=== PATIENT | female | born 1965 | race Caucasian/White ===

== ENCOUNTER → 2016-06-03 | Outpatient (CLI) | payer OTHER ==
[~2016-06-03] VITALS: Ht 157.5 cm; Wt 112.5 kg
[~2016-06-03] MED LIST: ACLI400A2 IH; ALPR.5T PO; AMIT25TA9 PO; AMIT50TA3 PO; ASPI-983 PO; ASPI-999 PO; ASPI1TAB22 PO; BUDE10.2 IH; BUME0.5T3 PO; CATHETER FLUSH 10 ML SYR IV PRN; CETI10TA20 PO; DAPA1TAB3 PO; EZET1TAB43 PO; FAMO-119 PO; FLAX100031 PO; FLUO40CA PO; GLIP10TA13 PO; HCT25T PO; HCTZ12.5T PO; IBUP-30 PO; INSU100V5 SQ; IPRA3AMP IH; IPRA3AMP11 INH; LIRA0.6P SQ; METF500T8 PO; METO-333 PO; MONT10TA21 PO; NEBU1EAC2 MC; PANT40TA2 PO; PIOG15TA2 PO; POTA-53 PO; Prednisone PO; QUIN10TA17 PO; QUIN40TA PO; REGADENOSON 0.4 MG/5 ML SYR (LEXISCAN) IV ONE; ROFL500T4 PO; RT-ALBUINH IH; SITA100T PO; ZLP10T PO
[2016-06-03 09:08] VITALS: BP 118/55
--- NOTE | 2016-06-07 10:16 | STRESS TEST ---
PROCEDURE PHYSICIAN: HAYDEN RUTHERFORD RESTING AND POST REGADENOSON TECHNETIUM 99M TETROFOSMIN SPECT CT IMAGING DATE OF PROCEDURE: 06/03/2016 ORDERING PHYSICIAN: Dara Flanagan APRN. PRIMARY PHYSICIAN: Dr. Galvez OTHER PHYSICIAN: Dr. Rutherford CLINICAL DIAGNOSIS: Shortness of breath. Baseline images were carried out after injection of 10.93 mCi technetium 99m tetrofosmin. This was followed by 0.4 mg of regadenoson and 31.7 mCi technetium 99m tetrofosmin for stress imaging. The electrocardiogram showed sinus rhythm at baseline. There was ST and T wave abnormality at baseline which did not change significantly with regadenoson infusion. Review of images at rest and following stress, indicates a transient anteroseptal perfusion defect. Gated images show normal global left ventricular systolic function with normal regional wall motion. Left ventricular ejection fraction is calculated to be 79%. Left end-diastolic volume is 41 mL. TID is absent (0.85). CONCLUSION: 1. This study indicates a moderate amount of anteroseptal ischemia. 2. Normal regional wall motion. 3. Normal global left ventricular systolic function with a calculated ejection fraction of 79%. Job ID: [id number] Dictated Date: 06/07/2016 09:12:34 Payroll Auditor Date: 06/07/2016 10:11:20 / muriel
== END ==
LOC: CARD 07:45
PROVIDERS: ATTEND Nurse Practitioner Family
DX: I50.32 Chronic diastolic (congestive) heart failure (principal)
CPT/HCPCS: 78452; 93017

== ENCOUNTER 2016-06-22 07:57 | Day surgery (SDC) | payer OTHER ==
[~2016-06-22] VITALS: Ht 157.5 cm; Wt 113.4 kg
[2016-06-22] VITALS (11 sets, daily range): BP systolic 126–170; BP diastolic 63–86
[~2016-06-22 07:57] MED LIST changes: -ACLI400A2 IH; -AMIT50TA3 PO; -ASPI-983 PO; -ASPI-999 PO; -BUDE10.2 IH; -BUME0.5T3 PO; -CATHETER FLUSH 10 ML SYR IV PRN; -CETI10TA20 PO; -DAPA1TAB3 PO; -FAMO-119 PO; -INSU100V5 SQ; -IPRA3AMP IH; -METO-333 PO; -MONT10TA21 PO; -PANT40TA2 PO; -POTA-53 PO; -REGADENOSON 0.4 MG/5 ML SYR (LEXISCAN) IV ONE; -ROFL500T4 PO; -RT-ALBUINH IH
[2016-06-22] MEDS ORDERED: HEParin (CATH LAB) 2,000 ML IV ONE (08:09)
[2016-06-22] MEDS ORDERED: LIDOCAINE 1% INJ 20 ML (XYLOCAINE) VIAL ONE (08:09)
[2016-06-22] MEDS ORDERED: NS IV 1000 ML 1,000 ML ONE (08:09)
[2016-06-22] MEDS ORDERED: NS IV 1000 ML 1,000 ML IV SCH ×2 (08:30→11:04)
[2016-06-22 08:47] LABS: RED BLOOD COUNT 5.04 10^6/uL (4.35-5.85); RED CELL DISTRIBUTION WIDTH 15.9 % (10.0-14.5); WHITE BLOOD COUNT 11.5 10^3/uL (4.3-11.0)
[2016-06-22] MEDS ORDERED: ROFL500T4 PO (08:54)
[2016-06-22] MEDS ORDERED: BUDE10.2 IH (08:54)
[2016-06-22] MEDS ORDERED: INSU100V5 SQ (08:54)
[2016-06-22] MEDS ORDERED: METO-333 PO (08:54)
[2016-06-22] MEDS ORDERED: BUME0.5T3 PO (08:54)
[2016-06-22] MEDS ORDERED: ACLI400A2 IH (08:54)
[2016-06-22] MEDS ORDERED: CETI10TA20 PO (08:54)
[2016-06-22] MEDS ORDERED: DAPA1TAB3 PO (08:54)
[2016-06-22] MEDS ORDERED: ASPI-983 PO (08:54)
[2016-06-22] MEDS ORDERED: MONT10TA21 PO (08:54)
[2016-06-22] MEDS ORDERED: PANT40TA2 PO (08:54)
[2016-06-22] MEDS ORDERED: POTA-53 PO (08:54)
[2016-06-22] MEDS ORDERED: AMIT50TA3 PO (08:54)
[2016-06-22 08:59] LABS: PROTHROMBIN TIME PATIENT 13.2 SEC (12.2-14.7)
[2016-06-22] MEDS ORDERED: RT-ALBUINH IH (09:02)
[2016-06-22] MEDS ORDERED: IPRA3AMP IH (09:02)
[2016-06-22] MEDS ORDERED: FAMO-119 PO (09:02)
[2016-06-22 09:08] LABS: ALANINE AMINOTRANSFERASE 28 U/L (0-55); ALBUMIN 4.1 G/DL (3.2-4.5); ANION GAP 13 MMOL/L (5-14); ASPARTATE AMINO TRANSFERASE 16 U/L (5-34); BILIRUBIN,TOTAL 0.5 MG/DL (0.1-1.0); BLOOD UREA NITROGEN 9 MG/DL (7-18); BUN/CREATININE RATIO 12; CALCIUM 9.2 MG/DL (8.5-10.1); CARBON DIOXIDE 21 MMOL/L (21-32); CHLORIDE 103 MMOL/L (98-107); CHOLESTEROL 187 MG/DL (< 200); CREATININE SERUM 0.75 MG/DL (0.60-1.30); DIRECT LDL 107 MG/DL (1-129); GFR ESTIMATED > 60; GLUCOSE 211 MG/DL (70-105); POTASSIUM 3.1 MMOL/L (3.6-5.0); SODIUM 137 MMOL/L (135-145); TOTAL PROTEIN 6.9 G/DL (6.4-8.2); TRIGLYCERIDES 279 MG/DL (<150); VLDL CHOLESTEROL 56 MG/DL (5-40)
--- NOTE | 2016-06-22 10:02 | Cardiac Procedure Note-CS/ASA ---
Pre-Procedure Note Pre-Op Procedure Note H&P Reviewed The H&P was reviewed, patient examined and no changes noted. Date H&P Reviewed: Jun 22, 2016 Time H&P Reviewed: 10: Conscious Sedation Pre-Proced Time Reviewed: : ASA Class: 3 Airway Mallampati Classification: ([place] appropriate class) I. II. III, IV Lungs Heart ASA score ASA 1: a normal healthy patient ASA 2: a patient with a mild systemic disease (mid diabetes, controlled hypertension, obesity ASA 3: a patient with a severe systemic disease that limits activity (angina , COPD, prior Myocardial infarction) ASA 4: a patient with an incapacitating disease that is a constant threat to life (CHF, renal failure) ASA 5: a moribund patient not expected to survive 24 hrs. (ruptured aneurysm) ASA 6: a declared brain patient whose organs are being harvested. For emergent operations, add the letter E after the classification Grade 3 Sedation Plan: Analgesia, Amnesia, Plan communicated to team members, Discussed options with patient/fam, Discussed risks with patient/fam Note The patient is an appropriate candidate to undergo the planned procedure, sedation, and anesthesia. The patient immediately re-assessed prior to indication. HAYDEN PALOMO MD FACP FAC CCDS Jun 22, 2016 10:02
[2016-06-22] MEDS ORDERED: fentaNYL INJECTION 100 MCG/2 ML AMP ONE (10:06)
[2016-06-22] MEDS ORDERED: diphenhydrAMINE 50 MG/ML INJ (BENADRYL) ONE (10:06)
[2016-06-22] MEDS ORDERED: MIDAZOLAM 5 MG/5 ML (VERSED) VIAL ONE (10:06)
[2016-06-22] MEDS ORDERED: ASPI-999 PO (11:00)
[2016-06-22] MEDS ORDERED: KCL 20 MEQ TAB (K-DUR) PO ONE (11:00)
--- NOTE | 2016-06-22 11:02 | Discharge Inst-Post CATH ---
Discharge Inst-CATH Post Cardiac Cath D/C Inst Follow Up/Plan Follow up with Dr Rutherford in 1-2 weeks CARDIAC CATH DISCHARGE INSTRUCTIONS *Hold Metformin for 48 hours post heart cath. ACTIVITY * Go Home directly and rest. * Limit activity of the leg (or wrist if it was used) for 7 days including aerobics, swimming, jogging, bicycling, etc. * Restrict stair-climbing for 7 days if possible, if not, climb up with your non -cath leg, then bring together on the same step. * Avoid lifting, pushing, pulling or excessive movement of the affected extremity for 7 days. * Customary sexual activity may be resumed after 2 days-use caution not to use a position that strains or causes pain to the affected extremity. * No driving for 24 hours. * NO SMOKING. * Avoid straining for bowel movements for 7 days. * Gentle walking on level ground is allowed. * Returning to work will depend on the type of procedure and the results. Your doctor will discuss this with you. CALL YOUR DOCTOR FOR ANY OF THE FOLLOWING: *If bleeding from the puncture site occurs- Apply gentle pressure to site with clean cloth and call your doctor or EMS. * If a knot or lump forms under the skin, increases in size, or causes pain. * If bruising appears to be worsening or moving further down your leg instead of disappearing. * Temperature above 101 F. CARE OF YOUR GROIN INCISION; * Bruising or purple discoloration of the skin near the puncture site is common. * You may shower only, no bathtub bathing for 5 days. Be careful to avoid slipping as your leg may feel stiff. * If a closure device was used on your femoral artery, please see the attached guide regarding care of the device and your leg. * REMOVE the dressing from your groin the next day after your procedure in the shower. CARE OF YOUR WRIST INCISION; * Bruising or purple discoloration of the skin near the puncture site is common. * You may shower. * DO NOT submerge wrist. * Remove dressing in 24 hours. HAYDEN RUTHERFORD MD [facility] CCDS Jun 22, 2016 11:02
--- NOTE | 2016-06-22 11:03 | Discharge Inst-Cardiology ---
Discharge Inst-Cardiac Discharge Medications New Medications: Aspirin (Aspirin) 81 Mg Tab.chew 81 MG PO DAILY #90 Ref 3 TAB Continued Medications: Aclidinium [place] (Tudorza Pressair) 400 Mcg Aer.pow.ba 1 PUFF IH BID GM Albuterol Sulfate (Proair Hfa) 8.5 Gm Hfa.aer.ad 2 PUFF IH QID PRN SHORTNESS OF BREATH INH Alprazolam (Xanax) 0.5 Mg Tablet 0.5 MG PO TID PRN ANXIETY TAB Amitriptyline HCl (Amitriptyline HCl) 50 Mg Tablet 50 MG PO HS TAB Aspirin/Acetaminophen/Caffeine (Excedrin Migraine Caplet) 1 Tab Tablet 2 TAB PO DAILY PRN MIGRAINE TAB Budesonide/Formoterol Fumarate (Symbicort 160-4.5 Mcg Inhaler) 10.2 Gm Hfa.aer.ad 2 PUFF IH BID INHALER Bumetanide (Bumetanide) 0.5 Mg Tablet 0.5 MG PO DAILY TAB Cetirizine HCl (Zyrtec) 10 Mg Tablet 10 MG PO DAILY TAB Famotidine (Pepcid) 20 Mg Tablet 20 MG PO DAILY PRN HEARTBURN TAB Fluoxetine Hcl (Fluoxetine Hcl) 40 Mg Capsule 40 MG PO DAILY CAP Insulin Determir (Levemir) 1,000 Units/10 Ml Soln 75 UNITS SQ HS EA Ipratropium/Albuterol Sulfate (Iprat-Albut 0.5-3(2.5) mg/3 ml) 3 Ml Ampul.neb 3 ML IH Q6H PRN SHORTNESS OF BREATH EACH Metoprolol Tartrate (Metoprolol Tartrate) 25 Mg Tablet 25 MG PO BID TAB Montelukast Sodium (Singulair) 10 Mg Tablet 10 MG PO DAILY TAB Pantoprazole Sodium (Protonix) 40 Mg Tablet.dr 40 MG PO DAILY TAB Potassium Chloride (K-Tab ER) 20 Meq Tablet.er 20 MEQ PO DAILY TAB Quinapril Hcl (Quinapril Hcl) 10 Mg Tablet 10 MG PO DAILY TAB Roflumilast (Daliresp) 500 Mcg Tablet 500 MCG PO DAILY TAB Discontinued Medications: Aspirin (Aspirin EC) 81 Mg Tablet.dr 81 MG PO DAILY TAB Dapagliflozin/Metformin HCl (Xigduo Xr 5 mg-1,000 mg Tablet) 1 Each Tab.bp.24h 1 TAB PO BID Ibuprofen (Advil) 200 Mg Tablet 400-800 MG PO TID TAKES 2 TO 4 (200MG) TABLETS PRN PAIN TAB Patient Instructions Patient Instructions: Hold XIGDUO until the evening of 06/24/16, then resume previous home dose HAYDEN PALOMO MD FACP FAC CCDS Jun 22, 2016 11:03
[2016-06-22] MEDS ORDERED: PATIENT MAY USE OWN MEDS, ALL PO SCH (11:15)
--- NOTE | 2016-06-23 10:57 | CARDIAC CATHETERIZATION ---
PROCEDURE PHYSICIAN: HAYDEN PALOMO DATE OF PROCEDURE: 06/22/2016 Meredith Donohue is a 51-year-old lady who has multiple coronary artery disease risk factors and had an abnormal stress test recently that showed anteroapical ischemia and an echocardiogram was a concern of moderate pulmonary hypertension. Complete heart catheterization was recommended and an informed consent was obtained. PROCEDURE: She is brought to the cardiac catheterization during a fasting state. The right groin was prepared and draped in usual sterile fashion. 1% lidocaine was used for local anesthesia. Modified Seldinger technique was used to advance a 5-Algerian sheath in the right femoral artery. A 5-Algerian sheath in the right femoral artery and a 7-Algerian sheath in right femoral vein. We carried out, right heart catheterization using a 7-Algerian [place]-Raj catheter. We used a 5-Algerian pigtail catheter to carry out left heart catheterization, left ventricular angiography. We used a 5-Algerian JL4 catheter for left coronary angiography and 5-Algerian JR4 catheter was used for right coronary angiography. We used 5-Algerian pigtail catheter to carry out aortic arch angiography. At the end of the procedure, angiography of the right femoral artery was carried out through the sheath, but the site of sheath deployment was not suitable for device closure. She was transferred to [facility] area for manual sheath removal. She tolerated the procedure well. HEMODYNAMICS: Pulmonary artery pressure was 56/28 with a mean of 40 mmHg. Right ventricular pressure was 56/16. Mean right atrial pressure was 13 mmHg. Mean pulmonary wedge pressure was 22 mmHg. Cardiac output by thermodilution was 7.4. Cardiac index by thermodilution was 3.43. Pulmonary vascular resistance was calculated to be 2.5 Wood units. Left ventricular end diastolic pressure was 25 mmHg. There was no significant pressure gradient on pullback across the aortic valve. Ascending aortic pressure 131/78 with a mean of 79 mmHg. LEFT VENTRICULAR ANGIOGRAPHY: Left ventricular angiography was carried out in the right anterior oblique projection. Global left ventricular systolic function is normal. No regional wall motion abnormalities are seen. Left ventricular ejection fraction is approximately 65%. There does not appear to be significant mitral regurgitation. AORTIC ARCH ANGIOGRAPHY: Aortic arch angiography did not indicate any significant thoracic aortic aneurysm or dissection. The left carotid artery has origin from the right brachiocephalic trunk. The left subclavian artery seems to have approximately 30% ostial stenosis. CORONARY ANGIOGRAPHY: The left main coronary artery is free of significant disease. Left anterior descending artery is free of significant disease. Left circumflex artery has mild plaque in its proximal portion consisting of stenosis of less than 20%. The right coronary artery is dominant and does not exhibit significant disease. CONCLUSIONS: 1. Moderate pulmonary hypertension. 2. Diastolic dysfunction of the left ventricle. 3. Normal global left ventricular systolic function with an ejection fraction of approximately 65%. 4. Mild coronary artery disease. 5. No significant mitral regurgitation. 6. Evidence of diastolic congestive heart failure, apparently chronic. DISCUSSION AND RECOMMENDATIONS: Based on the results of this study, it appears appropriate to continue a conservative approach. Risk factor modification has been reviewed. Weight loss is advised. Compliance with therapy with sleep apnea is advised. Outpatient follow-up is advised. Diuretic therapy is being continued for chronic congestive heart failure. Potassium replacement is being continued. Job ID: [id number] Dictated Date: 06/22/2016 11:12:12 Interactive Graphic Designer Date: 06/23/2016 10:46:09 / muriel
== END 2016-06-22 16:00 | disposition home or self-care (01) ==
LOC: CATH 07:57
PROVIDERS: ATTEND Internal Medicine Cardiovascular Disease
DX: R94.39 Abnormal result of other cardiovascular function study (principal); I27.2 Other secondary pulmonary hypertension; I25.10 Atherosclerotic heart disease of native coronary artery without angina pectoris; I50.32 Chronic diastolic (congestive) heart failure; E66.01 Morbid (severe) obesity due to excess calories; G47.33 Obstructive sleep apnea (adult) (pediatric); J44.9 Chronic obstructive pulmonary disease, unspecified; I10 Essential (primary) hypertension; E78.5 Hyperlipidemia, unspecified; E11.9 Type 2 diabetes mellitus without complications; Z68.42 Body mass index [BMI] 45.0-49.9, adult; Z79.899 Other long term (current) drug therapy; Z87.891 Personal history of nicotine dependence
CPT/HCPCS: 36221; 36415; 80053; 80061; 85027; 85610; 85730; 87081; 93005; 93460